=== PATIENT | female | born 1950 | race Native Hawaiian/Other Pacific Islander ===

== ENCOUNTER 2017-03-01 09:15 | Day surgery (SDC) | payer OTHER | END 2017-03-01 11:05 | disposition home or self-care (01) | LOC: OR 09:15 | PROC: 08RK3JZ Replacement of Left Lens with Synthetic Substitute, Percutaneous Approach (ICD-10-PCS; principal; 2017-03-01) | PROC: 08BTXZZ Excision of Left Conjunctiva, External Approach (ICD-10-PCS; 2017-03-01) | DX: H25.812 Combined forms of age-related cataract, left eye (principal); H11.022 Central pterygium of left eye | CPT/HCPCS: 65420; 66984; J2250; J3490; V2632 ==